=== PATIENT | female | born 1995 | race Caucasian/White ===

== ENCOUNTER 2023-05-13 00:27 | Inpatient (IN) | payer OTHER ==
[~2023-05-13] VITALS: Ht 160 cm; Wt 79.8 kg
[2023-05-13 00:48] VITALS: BP 117/69; PULSE 77; RESP 18; TEMP 98.4; O2SAT 0
[2023-05-13] MEDS ORDERED: METHYLERGONOVINE 0.2 MG/ML AMP IM PRN (01:05)
[2023-05-13] MEDS ORDERED: LACTATED RINGERS 500 ML IV ONE (01:05)
[2023-05-13 01:22] LABS: BASOPHILS % (AUTO) 0.5 % (0.0-2.0); EOSINOPHILS # (AUTO) 0.1 K/uL (0-0.4); EOSINOPHILS % (AUTO) 0.8 % (0.0-4.0); HEMATOCRIT 34.7 % (36-48); HEMOGLOBIN 12.1 g/dL (12.0-16.0); LYMPHOCYTES # (AUTO) 1.3 K/uL (2.5-16.5); LYMPHOCYTES % (AUTO) 13.2 % (20.5-51.1); MEAN CORPUSCULAR HEMOGLOBIN 30 pg (27-31); MEAN CORPUSCULAR HGB CONC 35 g/dL (33-37); MEAN CORPUSCULAR VOLUME 87.3 fL (80-94); MONOCYTES # (AUTO) 0.7 K/uL (0.8-1.0); MONOCYTES % (AUTO) 7.2 % (1.7-9.3); NEUTROPHILS % (AUTO) 78.3 % (42.2-75.2); PLATELET COUNT (AUTO) 167 K/uL (140-450); RED BLOOD CELL COUNT(AUTO) 3.98 MIL/uL (4.20-5.40); RED CELL DISTRIBUTION WIDTH 13.5 % (11.6-13.7); WHITE BLOOD COUNT (AUTO) 10.2 K/uL (4.8-10.8)
[2023-05-13] MEDS ORDERED: OXYTOCIN 20 UNITS in LACTATED RINGERS 1,000 ML IV SCH (01:30)
[2023-05-13] MEDS ORDERED: AMPICILLIN 2,000 MG in NACL 0.9% MINI-BAG PLUS 100 ML IV SCH (01:30)
[2023-05-13 01:45] LABS: APPEARANCE,URINE CLEAR (CLEAR); BILIRUBIN,URINE NEGATIVE (NEGATIVE); BLOOD, URINE TRACE-I (NEGATIVE); COLOR,URINE YELLOW (YELLOW); LEUKOCYTE ESTERASE ,URINE TRACE (NEGATIVE); NITRITE, URINE POSITIVE (NEGATIVE); PROTEIN,URINE NEGATIVE (NEGATIVE); UGLUCOSE NEGATIVE (NEGATIVE); UROBILINOGEN,URINE 0.2 EU/dL (0.2 - 1)
[2023-05-13 01:58] LABS: BACTERIA,URINE 10-30 (MOD) /HPF (None Seen)
[2023-05-13 01:59] LABS: MUCUS,URINE 1+ /LPF (None Seen); SQUAMOUS EPITHELIAL CELL,UR 4-10 (MOD) /LPF (0-3 (FEW))
[2023-05-13] MEDS ORDERED: AMPICILLIN 2,000 MG VIAL ONE (02:01)
[2023-05-13] MEDS ORDERED: OXYTOCIN 20 UNITS/LR PREMIX 1,000 ML IV ONE ×2 (02:13→21:17)
[2023-05-13] MEDS: LACTATED RINGERS 1,000 ML IV SCH ×3 (02:26→13:58)
[2023-05-13 03:34] LABS: ALBUMIN 2.8 g/dL (3.4-5.0); CALCIUM 8.6 mg/dL (8.5-10.1); CARBON DIOXIDE 21.8 mmol/L (21-32); CREATININE 0.7 mg/dL (0.6-1.3); POTASSIUM 3.8 mmol/L (3.5-5.1); TOTAL BILIRUBIN 0.3 mg/dL (0.0-1.0); TOTAL PROTEIN, SERUM 6.7 g/dL (6.4-8.2)
[2023-05-13] MEDS ORDERED: MAGNESIUM (04:43)
[2023-05-13] MEDS ORDERED: FERR-212 PO (04:43)
[2023-05-13] MEDS ORDERED: PREN-537 PO (04:43)
[2023-05-13] MEDS ORDERED: ONDANSETRON 4 MG/2 ML VIAL IVP PRN (05:55)
[2023-05-13] MEDS ORDERED: MORPHINE SULFATE 10 MG/ML VIAL IVP PRN (05:55)
[2023-05-13] MEDS ORDERED: AMPICILLIN 1,000 MG VIAL ONE ×4 (05:59→19:09)
[2023-05-13] MEDS: AMPICILLIN 1,000 MG in NACL 0.9% 50 ML IV SCH ×3 (06:05→13:57)
[2023-05-13] MEDS ORDERED: ROPIVACAINE 0.2%/NS PREMIX 200 ML EPI ONE (13:03)
[2023-05-14] MEDS ORDERED: IBUPROFEN 600 MG TAB PO PRN ×2 (02:25)
[2023-05-14] MEDS ORDERED: SIMETHICONE 80 MG TAB.CHEW PO PRN (02:25)
[2023-05-14] MEDS ORDERED: METHYLERGONOVINE 0.2 MG TAB PO PRN (02:25)
[2023-05-14] MEDS ORDERED: BENZOCAINE/MENTHOL 20%-0.5% 60 GM CAN TP PRN (02:25)
[2023-05-14] MEDS ORDERED: MEASLES, MUMPS, AND RUBELLA 1 VIAL SQVAC ONE (02:25)
[2023-05-14] MEDS ORDERED: OXYTOCIN 10 UNITS/ML VIAL IM PRN (02:25)
[2023-05-14] MEDS ORDERED: IBUPROFEN 800 MG TAB PO PRN (02:25)
[2023-05-14] MEDS ORDERED: bisacodyL 5 MG TABEC PO PRN (02:25)
[2023-05-14] MEDS ORDERED: METHYLERGONOVINE 0.2 MG/ML AMP IM PRN (02:25)
[2023-05-14] MEDS ORDERED: DOCUSATE SODIUM 100 MG GELCAP PO PRN (02:25)
== END 2023-05-15 13:50 | disposition home or self-care (01) | DRG 806 ==
LOC: MLD 00:27 → MFCC 05-14 00:30
PROVIDERS: ADMIT Obstetrics & Gynecology; ATTEND Obstetrics & Gynecology
PROC: 10E0XZZ Delivery of Products of Conception, External Approach (ICD-10-PCS; principal; 2023-05-13)
PROC: 3E0R3BZ Introduction of Anesthetic Agent into Spinal Canal, Percutaneous Approach (ICD-10-PCS; 2023-05-13)
PROC: 00HU33Z Insertion of Infusion Device into Spinal Canal, Percutaneous Approach (ICD-10-PCS; 2023-05-13)
DX: O48.0 Post-term pregnancy (principal); D62 Acute posthemorrhagic anemia; Z37.0 Single live birth; Z3A.41 41 weeks gestation of pregnancy; O90.81 Anemia of the puerperium; Z20.822 Contact with and (suspected) exposure to COVID-19
CPT/HCPCS: 36415; 51702; 59409; 80053; 81001; 85018; 85025; 86592; 86886; 86900; 86901; 87086; J0290; J2270; J2405; J2590; J2795; J7120